=== PATIENT | male | born 1950 | race Caucasian/White ===

== ENCOUNTER 2024-04-12 12:26 | Emergency (ER) | payer OTHER, SELFPAY ==
[2024-04-12 12:37] VITALS: BP 140/81
[2024-04-12 12:48] VITALS: BMI 44.1
--- NOTE | 2024-04-12 16:16 | ED.MUSCINJ ---
HPI-Injury
General
Chief Complaint: Musculo-Skeletal Complaint
Time Seen by Provider: 04/12/24 15:29
History of Present Illness-Injury
Initial Injury comments:
Patient presents to the emergency department with left shoulder and anterior chest pain after fall 1 week ago. States that he was walking down the stairs when he lost his footing and fell forward. There is no head strike. Landed on his left arm.
Complains of left anterior chest pain when taking a deep breath. Mild left shoulder pain but is able to use the left arm without difficulty
Phy Exam
Physical Exam
Physical Exam:
GENERAL APPEARANCE: NAD, well developed/ well nourished
EYES lids/conjunctiva normal
EARS/NOSE/THROAT Mucous membranes moist, uvula midline without oral pharyngeal erythema, exudate or swelling
HEAD/NECK normocephalic atraumatic, neck is supple.
RESPIRATORY respiratory effort normal, speaks in full sentences, no accessory muscle use. Lungs clear to auscultation without rhonchi, wheezes, rales
CARDIAC Regular rate and rhythm, no edema.
ABDOMINAL Soft, ND/NT.
MUSCLES/EXTREMITIES right shoulder with full range of motion mild crepitus noted. There is mild tenderness to the right anterior chest wall. There is no crepitus or subcutaneous emphysema. No bruising to chest wall
SKIN Warm, pink and dry. No rashes
NEUROLOGICAL Speech is clear and appropriate. Normal level of consciousness. 5/5 strength in all extremities.
PSYCH Normal mood and affect. Judgement/competence is appropriate
Injury Course
Orders/Labs/Results
Orders:
Orders
04/12/24 12:28
EKG [Electrocardiogram (*1)] Urgent
Reason for Study: Chest Pain
EKG- Treatment ONCE
04/12/24 12:43
CR Chest - 2 Views Urgent
Reason For Exam: pain injury
CR Shoulder, Trauma - Right Urgent
Comment:
Reason For Exam: pain injury
*Critical Care Note
Total Time (30-74mins, 75-104mins- exclusive of procedures): Not Applicable
ED Attending Note
ED Attending Note
ED Attending Note:
Discussed possibility of rib fracture with patient which I suspect he may have though though this is not seen on the chest x-ray. I offered him a CT scan for definitive diagnosis though this does not management given he has no pneumothorax or any
complicated findings such as flail chest or respiratory distress. Patient opted to treat conservatively. I will provide him with an incentive spirometer and instructed him to closely follow-up with his primary doctor.
-
Portions of this chart may have been created with voice recognition software.� Occasional wrong word or��sound alike� substitutions may have occurred due to the inherent limitations of voice recognition software.
Discharge Plan
Departure
Patient Disposition: Home (Routine Discharge)
Date of Disposition: 04/12/24
Time of Disposition: 16:20
Patient with high blood pressure during this ER visit?: Yes
Discharge Problem:
Rib injury, Chest wall contusion
Referrals:
Yuan Vegas DO [Family Provider] -
Interventions
Interventions:
*Risk Screen - Suicide Last Done: 04/12/24 12:37
*General Assessment Last Done: 04/12/24 14:40
*Neglect/Abuse Screening Last Done: 04/12/24 12:37
*ED COVID-19 Vaccine History Last Done: 04/12/24 14:40
*Nursing Disposition Last Done: 04/12/24 16:29
ED-Musculoskeletal Assessment Last Done: 04/12/24 15:04
Discharge Date and Time
Discharge Date/Time: 04/12/24 16:29
Print Language: CHINESE
== END 2024-04-12 16:29 | disposition home or self-care (01) ==
LOC: EMR 12:26
PROVIDERS: EMERGENCY PHYSICIAN Emergency Medicine; FAMILY PHYSICIAN Internal Medicine
DX: S20.212A Contusion of left front wall of thorax, initial encounter (principal); M25.512 Pain in left shoulder; W10.9XXA Fall (on) (from) unspecified stairs and steps, initial encounter
CPT/HCPCS: 99284; 71046; 73030; 93005

== ENCOUNTER 2024-12-10 15:11 | Emergency (ER) | payer OTHER, SELFPAY ==
[2024-12-10 15:15] VITALS: BP 122/83
[2024-12-10 15:46] LABS: Hematocrit 43.1 % (39.0-52.0); Hemoglobin 14.6 g/dL (13.0-18.0); Mean Corp Hgb Conc. 33.9 g/dL (33.0-37.0); Mean Corpuscular Volume 94.5 fL (80.0-94.0); Nucleated Red Blood Cells % 0 % (-); Platelet Count 106 10^3/uL (130-400); Red Cell Dist. Width 12.4 % (11.5-14.5)
[2024-12-10 15:50] LABS: ALT (SGPT) 13 U/L (0-50); AST (SGOT) 19 U/L (17-59); Albumin 3.8 g/dl (3.5-5.0); Alkaline Phosphatase 81 U/L (38-126); Blood Urea Nitrogen 10 mg/dl (9-20); Calcium 8.8 mg/dl (8.4-10.2); Carbon Dioxide 27 mmol/L (22-30); Chloride 101 mmol/L (98-107); Glucose 167 mg/dl (70-99); Potassium 4.2 mmol/L (3.5-5.1); Sodium 134 mmol/L (135-145); Total Protein 7.0 g/dl (6.3-8.2); eGFR > 60.00
--- NOTE | 2024-12-10 18:15 | ED.GENMED ---
History of Present Illness
General
Chief Complaint: Weakness
Source: patient, spouse and family
Exam Limitations: none
Time Seen by Provider: 12/10/24 17:34
Nursing documentation reviewed up to this point in time: agreed with
History of Present Illness
History of Present Illness:
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
to bed woke up speech is better still feels kind of weak, has noticed some swelling of his testicles left greater than right which is not new, not known to be diabetic, did have some urinary burning initially and that cleared up and then he had dark
urine,
Past History
Past History
ED Past Medical History: None
ED Past Surgical History: None
Social History
Tobacco: Non-smoker
Alcohol: None
Drug: None
Personal:
Living: with family
Employment: Employed
Review of Systems
Review of Systems
All Other Systems: Not applicable
Constitutional: Reports fatigue; Denies fever
EENT: Reports no symptoms
Respiratory: Reports no symptoms
Cardiac: Reports no symptoms
ABD/GI: Denies abdominal pain
: Reports urgency, dark urine and other (Testicle swelling left greater than)
Neurological: Reports weakness and other (Speech abnormality in the setting of feeling warm few days ago none now)
Hematologic/Lymphatic: Reports no symptoms
Psychiatric: Reports no symptoms
Phy Exam
Physical Exam
Physical Exam:
Physical Exam
General: no apparent distress, not acutely ill
Neck: No jaundice
Heart: s1/s2 regular rate and rhythm, no murmur. equal radial pulses.
Lungs: no acute respiratory distress. clear bilaterally
Abdomen: Nontender testicles descended minimally tender left hemiscrotum compared to the right
Neuro: alert and oriented. no focal neurological deficits clear speech, no facial palsy normal [id number]
Skin: no rash
Psychiatric: well kept. interactive and cooperative
Extremities: no edema.
Course
Orders/Labs/Results
Orders:
Orders
12/10/24 15:14
EKG [Electrocardiogram (*1)] Urgent
Reason for Study: Fatigue / Weakness
12/10/24 15:15
EKG- Treatment ONCE
12/10/24 15:28
CT Head W/o Iv Contrast Urgent
Comment:
Reason For Exam: TIA/CVA
12/10/24 15:30
CBC/With Diff [Complete Blood Count/With Diff] Urgent
CMP [Comprehensive Metabolic Panel] Urgent
12/10/24 17:58
Scrotum US [US Scrotum] Urgent
Comment:
Reason For Exam: pain left>rigth teseticle
12/10/24 18:08
Urinalysis Reflex To Culture Urgent
Date Specimen was Collected: 12/10/24
Time Specimen was Collected: 18:01
Urine Microscopic Reflex Cult Urgent
Urine Culture Urgent
EMMANUELLE Source: U
Specimen Description:
Date Specimen was Collected: 12/10/24
Time Specimen was Collected: 18:01
12/10/24 18:38
Add On- LAB Urgent
Tests Added?: urine culture
CefTRIAXone [Rocephin] 1,000 mg IV NOW STA
Abnormal Lab Results
12/10/24 12/10/24
15:30 18:08
RBC 4.56 L 10^6/uL
(4.70-6.10)
MCV 94.5 H fL
(80.0-94.0)
MCH 32.0 H pg
(27.0-31.0)
Plt Count 106 L 10^3/uL
(130-400)
MPV 11.0 H fL
(7.4-10.4)
Abs Immat Gran (auto) 0.1 H 10^3/uL
(0-0.05)
Absolute Neuts (auto) 7.3 H 10^3/uL
(1.4-6.5)
Absolute Lymphs (auto) 0.5 L 10^3/uL
(1.2-3.4)
Immature Gran % 0.9 H %
(0-0.5)
Neutrophils % 85.4 H %
(42.2-75.2)
Lymphocytes % 6.3 L %
(20.5-51.1)
Sodium 134 L mmol/L
(135-145)
Glucose 167 H mg/dl
(70-99)
Urine Ketones 2+ A
(Negative)
Ur Occult Blood Reflex 4+ A
(Negative)
Urine Nitrite (Reflex) Positive A
(Negative)
Leukocyte Esterase Rfl 3+ A
(Negative)
Urine WBC (Reflex) 50-60 A /HPF
(0-5)
Urine Bacteria (Reflex) Many A
(Negative)
Urine Albumin (Reflex) 2+ A
(Neg - Trace)
12/10/24 15:30
12/10/24 15:30
Vital Signs
Initial and Last Documented VS:
Initial Vital Signs
Temp Pulse Resp BP Pulse Ox
99.2 F 91 15 122/83 99
12/10/24 15:15 12/10/24 15:15 12/10/24 15:15 12/10/24 15:15 12/10/24 15:15
Last Documented Vital Signs
Temp Pulse Resp BP Pulse Ox
99.2 F 91 15 122/83 99
12/10/24 15:15 12/10/24 15:15 12/10/24 15:15 12/10/24 15:15 12/10/24 18:16
*Radiology
Radiology exam reviewed: radiology read reviewed
*Pulse Oximetry
SaO2: 99
Oxygen Mode of Delivery: Room air
Patient hypoxic: no
*EKG
Interpreted by ED Provider?: Yes
Interpretation: normal
Comparison EKG: no comparison EKG present
Heart Rate: 78
Rate: normal
Rhythm: sinus
Ischemia: no ischemia
*Octave Board Racker Interpretation
Rate: normal
Interpretation: normal
Heart Rate: 78
Rhythm: sinus
*Critical Care Note
Total Time (30-74mins, 75-104mins- exclusive of procedures): Not Applicable
Update Note
Update Note:
Update suspect heatstroke heat related illness possibly concomitant UTI nonfocal neurologic exam normal CT labs are noted nonfasting glucose, will check urinalysis urine culture scrotal ultrasound start on saline hydration
UA noted will add urine culture start on antibiotics ultrasound pending
ED Attending Note
-
Portions of this chart may have been created with voice recognition software.� Occasional wrong word or��sound alike� substitutions may have occurred due to the inherent limitations of voice recognition software.
Discharge Plan
Departure
Patient Disposition: Home (Routine Discharge)
Date of Disposition: 12/10/24
Time of Disposition: 19:18
Patient with high blood pressure during this ER visit?: No
Condition: Good
Discharge Problem:
Acute UTI, Heatstroke
Instructions: Urinary tract infections in adults, Urinary tract infection - Discharge instructions
Prescriptions:
New
amoxicillin-pot clavulanate 875-125 mg tablet
1 tab PO Q12H Qty: 20 0RF
Referrals:
Yuan Vegas DO [Family Provider, Internal Medicine] - Follow up in 2-3 days
Activity Restrictions/Additional Instructions:
Drink plenty of fluids
Avoid the heat
Antibiotics as prescribed
Return to the ER if worsening symptoms
Interventions
Interventions:
*Risk Screen - Suicide Last Done: 12/10/24 15:15
*General Assessment Last Done: 12/10/24 15:15
*Neglect/Abuse Screening Last Done: 12/10/24 15:15
ED- Cardiac Assessment Last Done: 12/10/24 18:11
ED- Neurological Assessment Last Done: 12/10/24 18:11
ED- Pulmonary Assessment Last Done: 12/10/24 18:11
Discharge Date and Time
Print Language: DJIBOUTIAN
[2024-12-10 18:23] LABS: Urine Character Slightly Cloudy (Clear)
[2024-12-10 18:35] LABS: Urine Red Blood Cell 0-2 /HPF (0-2)
[2024-12-10 18:36] LABS: Urine White Cell 50-60 /HPF (0-5)
[2024-12-10] MEDS: ROCEPHIN 1000 MG IV (18:52)
== END 2024-12-10 21:57 | disposition home or self-care (01) ==
LOC: EMR 15:11
PROVIDERS: Emergency Medicine; EMERGENCY PHYSICIAN Emergency Medicine; FAMILY PHYSICIAN Internal Medicine
DX: N39.0 Urinary tract infection, site not specified (principal); T67.01XA Heatstroke and sunstroke, initial encounter; X58.XXXA Exposure to other specified factors, initial encounter
CPT/HCPCS: 99284; 96374; 96375; 70450; 76870; 80053; 81003; 81015; 85025; 87077; 87086; 87186; 93005; 93976

== ENCOUNTER 2024-12-11 23:00 | Inpatient (IN) | payer OTHER, SELFPAY ==
[2024-12-11 17:32] VITALS: BP 134/77
[2024-12-11 17:59] LABS: Urine Character Slightly Cloudy (Clear)
[2024-12-11 18:01] LABS: Hematocrit 40.9 % (39.0-52.0); Hemoglobin 14.1 g/dL (13.0-18.0); Mean Corp Hgb Conc. 34.5 g/dL (33.0-37.0); Mean Corpuscular Volume 93.0 fL (80.0-94.0); Nucleated Red Blood Cells % 0 % (-); Platelet Count 116 10^3/uL (130-400); Red Cell Dist. Width 12.4 % (11.5-14.5)
[2024-12-11 18:28] LABS: ALT (SGPT) 13 U/L (0-50); AST (SGOT) 22 U/L (17-59); Albumin 3.5 g/dl (3.5-5.0); Alkaline Phosphatase 67 U/L (38-126); Blood Urea Nitrogen 13 mg/dl (9-20); Calcium 8.5 mg/dl (8.4-10.2); Carbon Dioxide 24 mmol/L (22-30); Chloride 101 mmol/L (98-107); Glucose 207 mg/dl (70-99); Potassium 4.0 mmol/L (3.5-5.1); Sodium 132 mmol/L (135-145); Total Protein 6.5 g/dl (6.3-8.2); eGFR > 60.00
[2024-12-11 18:34] LABS: Urine Red Blood Cell 30-40 /HPF (0-2); Urine White Cell >100 /HPF (0-5)
[2024-12-11 20:32] VITALS: BP 142/80
[2024-12-11 21:12] VITALS: BMI 42.6
[2024-12-11 21:13] VITALS: BP 158/90
[2024-12-11] MEDS: NSS 1000 IV (21:16)
[2024-12-11] MEDS: ROCEPHIN 1000 MG IV (21:16)
--- NOTE | 2024-12-11 21:23 | HPS.HSE ---
Family Physician
-
Family Physician:
Chief Complaint
-
Dysuria, dribbling, frequency, suprapubic tenderness
History of Present Illness
74-year-old male states on Saturday he became nauseous and threw up at work he then came home started having dysuria, dribbling, frequency with suprapubic tenderness along with weakness and hallucinations. He did not take his temperature. He came
to the ER yesterday 12/10/2024 was diagnosed with UTI and given Augmentin of which she has taken 2 tablets. He tells me he has had scrotal edema with inverted penis for approximately 2 years he followed outpatient with urology Dr. Shaw in
[facility] who did not address anything. He has a left testicular hard and mass approximately 4 inches long by 2 inches wide. 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 He has bilateral leg edema
with PVD pigment brown changes history of saphenous vein ablation left leg without results. He has history of sleep apnea diagnosed several years ago states he did not want to use CPAP so he uses warm water and gargles and feels that that fixed his
sleep apnea. He has history of class III obesity I discussed all of the above stating he needs weight loss, compressive dressings to lower legs, reevaluation by pulmonology for sleep apnea and evaluation by cardiology for dependent leg edema. He
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
Medical History
Past Medical History
Past Medical History: Reports Other
Additional Past Medical History:
history of class III obesity,
hepatomegaly with cirrhosis and/or fatty infiltration per ultrasound 05/08/2016,
sleep apnea-noncompliant
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
Past Surgical History: Reports Other
Additional Past Surgical History:
Left leg saphenous vein ablation x 2
Social History
Tobacco: Non-smoker
Alcohol: None
Personal:
Living: With Family
Employment: Retired
Family History
Family History: Not pertinent
Allergies / Home Medications
Allergies reflects when Allergies were last updated in [employer].
Home Medications with original date entered in [employer]
Allergy/Medication List:
Allergies
Allergy/AdvReac Type Severity Reaction Status Date / Time
cinnamon Allergy Unknown Verified 12/11/24 17:38
Home Medications
amoxicillin 875 mg-potassium clavulanate 125 mg tablet 1 tab PO Q12H #20 tabs 12/10/24
Review of Systems
-
History Source: Patient and Family ( at bedside)
A 12 point ROS was completed and negative except as noted: Yes
Constitutional: Denies Fever or Chills
EENT: Denies Sore Throat or Runny Nose
Respiratory: Reports Trouble Breathing (With activity); Denies Cough
Cardiac: Denies Chest Pain, Diaphoresis, Palpitations or Syncope
Abdomen/GI: Reports Abdominal Pain (Suprapubic); Denies Nausea, Vomiting, Diarrhea, Constipated or Bloody Stools
: Reports Dysuria, Frequency, Incontinence, Urgency and Other (Chronic swelling to scrotum, left side with hard mass approximately 4 inch long by 2 inch wide, inverted circumcised penis no evidence of phimosis); Denies Flank Pain
Musculoskeletal: Reports Edema (Chronic +1 peripheral edema knees to feet with brown purpleish pigment changes history of PVD); Denies Joint Pain
Skin: Denies Itching or Rash
Neurological: Reports Weakness; Denies Dizzy or Headache
Endocrine: Reports No Symptoms
Hematologic/Lymphatic: Reports No Symptoms
Psych: Reports Calm
Physical Exam
Vital Signs
Vital Signs
Temp Pulse Resp BP Pulse Ox
99.2 F 80 20 142/80 98
12/11/24 17:32 12/11/24 20:32 12/11/24 20:32 12/11/24 20:32 12/11/24 20:32
Physical Exam
General: Pain; No Fever or Chills
HEENT: NormoCephalic, Anicteric, Moist mucous membranes, PERRLA, [place] Conjunctivae and No Ptosis
Respiratory: Clear; No Wheezes, Rales or Rhonchi
Cardiac: S1/S2, Regular Rhythm and Peripheral Edema (Chronic bilateral lower legs); No Murmur, Rub or Gallop
GI: Soft, Normal Bowel Sounds and Other (Protuberant abdomen)
Genito-urinary: No costovertebral tender and Other (Chronic swelling to scrotum, left side with hard mass approximately 4 inch long by 2 inch wide, inverted circumcised penis no evidence of phimosis)
Musculoskeletal: No Clubbing, No Cyanosis, Edema, Left Lower Extremity (Chronic +1 peripheral edema knees to feet with brown purpleish pigment changes history of PVD) and Edema, Right Lower Extremity (Chronic +1 peripheral edema knees to feet with
brown purpleish pigment changes history of PVD); No Edema, Left Upper Extremity or Edema, Right Upper Extremity
Skin: Warm and Dry; No Rash
Neuro: AO x 3, Nonfocal/grossly intact, Cranial Nerves Intact, No Sensory Deficits and Other (Limited range of motion due to body habitus); No Slurred Speech, Facial Droop, Tremors or Sedated
Psych: Calm
Laboratory Results
-
12/11/24 17:47
12/11/24 17:47
Laboratory Results
Total Bilirubin 0.9 mg/dl (0.2-1.3) 12/11/24 17:47
AST 22 U/L (17-59) 12/11/24 17:47
ALT 13 U/L (0-50) 12/11/24 17:47
Alkaline Phosphatase 67 U/L (38-126) 12/11/24 17:47
Impression/Plan
-
Impression/plan:
Admit to MedSurg
#Symptomatic UTI
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
Dysuria, dribbling, frequency
Inability to tolerate p.o.
-Patient followed with urology Dr. Webster [facility] who he does not like
- IV Rocephin
- IV NSS 80 cc/h
- Follow CBC, BMP
- Consult urology-discussed with Dr. Wilkins once CT abdomen pelvis noncontrast
Scrotal ultrasound done yesterday 12/10/2024:
On the left, findings suspicious for mild epididymoorchitis. In addition, Adjacent to the epididymis, slightly thickened echogenic margins are noted.
The appearance suggests possibility of fibrous pseudotumor of the tunica vaginalis.
On the right, mild thickening of the epididymis without hyperemia to suggest acute epididymitis. Small to moderate right hydrocele. Mild right varicocele, with a short segment of thrombophlebitis.
#Sleep apnea�noncompliant
Monitor nocturnal pulse ox
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
#History of saphenous vein ablation left leg Dr. Ty Kirk
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
- Use Velcro compressive dressings for leg edema
#Hyperglycemia
Blood sugar 207, check HgbA1c
Accu-Cheks with SSI low
#Hepatomegaly with cirrhosis and/or fatty infiltration per ultrasound 05/08/2016
#Class III obesity�BMI 42.7
Weight loss recommended
DVT prophylaxis
Subcu Lovenox
Full code
--- NOTE | 2024-12-11 21:48 | ED.GENMED ---
History of Present Illness
General
Chief Complaint: Weakness
Time Seen by Provider: 12/11/24 20:58
Nursing documentation reviewed up to this point in time: agreed with
History of Present Illness
History of Present Illness:
74-year-old male brought to the ER by family for further treatment of urinary tract infection and confusion that were evaluated yesterday in the emergency department. Patient has no recollection of the events from yesterday, although family reports
that he had been ambulating independently without any reported trauma. Family present at bedside report that he has been confused. He has not had any significant p.o. intake in the last several days. No vomiting. Patient did not receive any
antibiotics yet for his urinary tract infection. Patient had been offered admission yesterday but adamantly declined causing his family to take him home. Patient is now willing for admission for further evaluation and care. He has no prior
history of kidney stones. He denies any flank pain. No syncope or trauma.
Past History
Past History
ED Past Medical History: None
ED Past Surgical History: None
Social History
Tobacco: Non-smoker
Alcohol: None
Drug: None
Personal:
Living: with family
Employment: Employed
Phy Exam
Physical Exam
Physical Exam:
Vital signs reviewed, patient is awake, alert, appears in no acute distress, mucous membranes tacky, conjunctiva pink, heart regular rate and rhythm without murmurs or ectopy, lungs are clear to auscultation without wheezes rales or rhonchi, abdomen
is soft and nontender, no guarding or rebound, extremities without edema, 2+ DP pulses present symmetric bilateral feet, left third toe with minor abrasion noted at the nailbed and scant dried blood present, no limitation active range of motion
bilateral feet GCS is 15
Course
Orders/Labs/Results
Orders:
Orders
12/11/24 17:47
Complete Blood Count/With Diff Urgent
Comprehensive Metabolic Panel Urgent
12/11/24 17:51
Urinalysis Reflex To Culture Urgent
Date Specimen was Collected: 12/11/24
Time Specimen was Collected: 17:39
Urine Microscopic Reflex Cult Urgent
Urine Culture Urgent
EMMANUELLE Source: U
Specimen Description:
Date Specimen was Collected: 12/11/24
Time Specimen was Collected: 17:39
12/11/24 20:59
CefTRIAXone [Rocephin] 1,000 mg IV NOW STA
12/11/24 21:05
0.9% Sodium Chloride 1000 ml [Nss] 1,000 ml IV BOLUS
Abnormal Lab Results
12/11/24 12/11/24
17:47 17:51
RBC 4.40 L 10^6/uL
(4.70-6.10)
MCH 32.0 H pg
(27.0-31.0)
Plt Count 116 L 10^3/uL
(130-400)
MPV 10.9 H fL
(7.4-10.4)
Absolute Lymphs (auto) 0.6 L 10^3/uL
(1.2-3.4)
Absolute Monos (auto) 0.7 H 10^3/uL
(0.1-0.6)
Neutrophils % 79.8 H %
(42.2-75.2)
Lymphocytes % 8.7 L %
(20.5-51.1)
Sodium 132 L mmol/L
(135-145)
Glucose 207 H mg/dl
(70-99)
Ur Occult Blood Reflex 4+ A
(Negative)
Leukocyte Esterase Rfl 3+ A
(Negative)
Urine RBC 30-40 A /HPF
(0-2)
Urine WBC (Reflex) >100 A /HPF
(0-5)
Urine Bacteria (Reflex) Many A
(Negative)
Urine Glucose 2+ A
(Negative)
Urine Albumin (Reflex) 2+ A
(Neg - Trace)
12/11/24 17:47
12/11/24 17:47
Mild worsening in hyponatremia compared to labs from yesterday. Kidney function preserved. CBC reassuring. Urinalysis positive for urinary tract infection
Vital Signs
Initial and Last Documented VS:
Initial Vital Signs
Temp Pulse Resp BP Pulse Ox
99.2 F 76 18 134/77 96
12/11/24 17:32 12/11/24 17:32 12/11/24 17:32 12/11/24 17:32 12/11/24 17:32
Last Documented Vital Signs
Temp Pulse Resp BP Pulse Ox
99.2 F 80 20 142/80 98
12/11/24 17:32 12/11/24 20:32 12/11/24 20:32 12/11/24 20:32 12/11/24 20:32
MDM/Problems Addressed
Differential Diagnosis Includes:
Differential diagnosis to consider but not limited to UTI, pyelonephritis, sepsis, dehydration along with other etiologies considered
*Pulse Oximetry
SaO2: 98
Oxygen Mode of Delivery: Room air
Patient hypoxic: no
*Critical Care Note
Total Time (30-74mins, 75-104mins- exclusive of procedures): Not Applicable
Data Reviewed
Review of Other/Old Records Reveals: Records (I reviewed ED visit from yesterday along with all test results including CT of the head which was negative)
Update Note
Update Note:
I discussed with patient and feel members present bedside benefit of admission for further treatment of urinary tract infection, in particular as he has been unable to tolerate p.o. and has been generally weak at home. They agree with plan. I
reviewed patient presentation with the hospitalist who accepts patient for admission for further care.
ED Attending Note
-
Portions of this chart may have been created with voice recognition software.� Occasional wrong word or��sound alike� substitutions may have occurred due to the inherent limitations of voice recognition software.
Discharge Plan
Departure
Patient Disposition: Admit
Date of Disposition: 12/11/24
Time of Disposition: 21:13
Presentation/result/management discussed w/ accepting MD/DO: Hospitalist
Discharge Problem:
Urinary tract infection, Acute delirium, inability to tolerate po
Prescriptions:
No Action
amoxicillin-pot clavulanate 875-125 mg tablet
1 tab PO Q12H Qty: 20 0RF
Interventions
Interventions:
*Risk Screen - Suicide Last Done: 12/11/24 17:32
*General Assessment Last Done: 12/11/24 17:32
*Neglect/Abuse Screening Last Done: 12/11/24 17:32
*ED COVID-19 Vaccine History Last Done: 12/11/24 17:32
Discharge Date and Time
Print Language: UZBEK
--- NOTE | 2024-12-11 21:53 | W.PN.UPDATE ---
Update Note
Progress Note Update
Patient seen in conjunction with YAEL. I agree with the findings on history and physical. I concur with assessment and plan listed otherwise.
Briefly, this is a 74-year-old male with past medical history significant for nephrolithiasis, history of gastric ulcer, fatty liver, BPH who presents to the emergency department with altered mental status and weakness as well as some urinary
symptoms. He was seen in the emergency department 1 day ago for episode of feeling dizzy and confused with some slurring of words that occurred during the hot weather episode 2 days prior. He went to bed and woke up and noticed that his speech had
returned to normal but he still felt weak. He has some testicular/scrotal swelling left greater than right as well as some urinary burning which also cleared up. When he was seen yesterday was found to have a urinary tract infection and started on
oral antibiotics. Patient returns to the ED stating that he is unable to tolerate p.o. and has continued confusion.
Today had a temp of 99.2, blood pressure was 140/80 with a pulse rate of 80 and was satting 98% on room air. CBC is unremarkable. His sodium of 132 electrolytes BUN/creatinine were otherwise normal. Glucose was 207. UA from yesterday was
positive for nitrite leukocyte esterase WBCs and many bacteria. He had an ultrasound of the scrotum suspicious for mild epididymoorchitis. In addition, Adjacent to the epididymis, slightly thickened echogenic margins are noted. The appearance
suggests possibility of fibrous pseudotumor of the tunica vaginalis.
Assessment and plan
UTI - Unclear predisposing factor but likely anatomical with scrotal edema/hydrocele and buried meatus. No flank pain, no fevers or chills. Has hematuria.
- admit to telemetry observation
- ucx sent
- IV ceftriaxone
- check CT a/p to rule out obstructing stone
Scrotal edema - possible epididymorchitis with small to moderate right hydrocele. Mild right varicocele, with a short segment of thrombophlebitis. H/O fibrotic changes on prior abdominal u/s but no known dgx of cirrhosis.
- IV abx as above
- suggest outpatient urology follow up, weight loss and fluid management, check bnp, if elevated will get echo.
- eval ascites on the CT above
DAVID
- restart CPAP
Metabolic syndrome
- check lipid panel and a1c
DVT PPX - lovenox sq
Code status - Full Code
[2024-12-11 22:00] VITALS: BP 147/93
[2024-12-11 23:20] VITALS: BP 150/92
[2024-12-12 00:15] LABS: Glucose - Point of Care 145 mg/dl (70-99)
[2024-12-12 00:20] VITALS: BP 138/78
[2024-12-12] MEDS: NSS 1000 IV (01:00)
[2024-12-12 05:29] VITALS: BMI 41.8
[2024-12-12 07:00] VITALS: BP 126/76
[2024-12-12 07:43] LABS: Glucose - Point of Care 183 mg/dl (70-99)
[2024-12-12] MEDS: NOVOLOG FLEXPEN-LOW RESISTANCE 1 UNITS SC ×3 (08:52→16:50)
--- NOTE | 2024-12-12 08:54 | W.PN.HOSP.TC ---
Today's Communication/Plan
-
see bold
Assessment / Plan
Assessment / Plan
#Symptomatic UTI with mild mild epididymoorchitis on US
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
Patient presents with dysuria, dribbling, frequency, inability to tolerate p.o.
Patient followed with urology Dr. Webster [facility] who he does not like
Continue IV Rocephin, follow-up on urine cultures
Appreciate urology input, recommends elevation, heat to the scrotum, NSAIDs as needed for pain
Scrotal ultrasound done yesterday 12/10/2024:
On the left, findings suspicious for mild epididymoorchitis. In addition, Adjacent to the epididymis, slightly thickened echogenic margins are noted.
The appearance suggests possibility of fibrous pseudotumor of the tunica vaginalis.
On the right, mild thickening of the epididymis without hyperemia to suggest acute epididymitis. Small to moderate right hydrocele. Mild right varicocele, with a short segment of thrombophlebitis.
#Sleep apnea�noncompliant
Monitor nocturnal pulse ox
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
#History of saphenous vein ablation left leg Dr. Ty Kirk
-Recommended patient see solar system designer outpatient for echo rule out heart failure
-Use Velcro compressive dressings for leg edema
# New onset type 2 diabetes
Hemoglobin A1c 6.9
Carb controlled diet, diabetes education
#Hepatomegaly with cirrhosis and/or fatty infiltration per ultrasound 05/08/2016
#Class III obesity�BMI 42.7
Weight loss recommended
DVT prophylaxis�subcu Lovenox
Full code
Total time spent to see the patient on the floor, examine the patient, review data and lab results, discuss treatment plan with patient, nursing staff around 50 minutes.
Physical Exam
General: Morbidly obese, no acute distress
HEENT: Normocephalic, Atraumatic, EOMI, MMM
Respiratory: Clear to Auscultation bilaterally
Cardiac: Normal S1/S2, Regular Rate and Rhythm
GI: Soft, Nontender, Nondistended, Normal Bowel Sounds
: Scrotal swelling noted
Extremities: No Clubbing, Cyanosis
Bilateral lower extremity edema noted with skin changes reflective of venous stasis dermatitis
Neuro: Nonfocal/Grossly Intact
Psych: Calm, Cooperative
Anticipated Discharge: 24 - 48 hours
Subjective/Interval History
-
Date of Service: December 12, 2024
Patient complains of continued scrotal pain and edema. Denies dysuria. No chest pain, no shortness of breath. No fever, no vomiting.
Objective Data
-
Labs:
Laboratory Results
12/12/24
08:00
WBC Pending
Hgb Pending
Hct Pending
Plt Count Pending
Sodium Pending
Potassium Pending
Chloride Pending
Carbon Dioxide Pending
BUN Pending
Creatinine Pending
Glucose Pending
Calcium Pending
Total Bilirubin Pending
AST Pending
ALT Pending
Alkaline Phosphatase Pending
Vital Signs:
Vital Signs
Temp Pulse Resp BP Pulse Ox
98.1 F 73 16 126/76 95
12/12/24 07:00 12/12/24 07:00 12/12/24 07:00 12/12/24 07:00 12/12/24 07:00
I&O
12/11/24 12/12/24 12/13/24
06:59 06:59 06:59
Intake Total 480 / 480
Balance 480 / 480
[2024-12-12 09:15] LABS: Hematocrit 40.3 % (39.0-52.0); Hemoglobin 13.7 g/dL (13.0-18.0); Mean Corp Hgb Conc. 34.0 g/dL (33.0-37.0); Mean Corpuscular Volume 93.7 fL (80.0-94.0); Nucleated Red Blood Cells % 0 % (-); Platelet Count 127 10^3/uL (130-400); Red Cell Dist. Width 12.4 % (11.5-14.5)
[2024-12-12 09:39] LABS: ALT (SGPT) 16 U/L (0-50); AST (SGOT) 24 U/L (17-59); Albumin 3.3 g/dl (3.5-5.0); Alkaline Phosphatase 77 U/L (38-126); Blood Urea Nitrogen 12 mg/dl (9-20); Calcium 8.3 mg/dl (8.4-10.2); Carbon Dioxide 26 mmol/L (22-30); Chloride 103 mmol/L (98-107); Estimated Creatinine Clearance > 125 ml/min; Glucose 157 mg/dl (70-99); HDL Cholesterol 27 mg/dl; LDL Cholesterol, Calculated 116 mg/dl; Potassium 3.9 mmol/L (3.5-5.1); Sodium 134 mmol/L (135-145); Total Protein 6.2 g/dl (6.3-8.2); Very Low Density Lipoprotein 27 mg/dl (0-30); eGFR > 60.00
[2024-12-12 10:55] LABS: Glycohemoglobin (HgbA1c) 6.9 % (4.0-5.6)
[2024-12-12 10:57] VITALS: BP 127/71
--- NOTE | 2024-12-12 11:09 | W.PN.URO.CBU ---
Today's Communication / Plan
-
heat elevate scrotum
Assessment / Plan
-
uti possible acute on chronic left epididymal pain non toxic urine bladne suggest elevation heat to scrotm and advil abs. follow up wit gu as outpatient no iobvuious reversible etiologed ofuti
Diagnosis
-
Date of Service: December 12, 2024
-
Patient Diagnosis:2 year plus h/o left scrotall pain an swelling getting worse but recent uti last week treated as outpatient but could nt tolerate po abs and returned to [facility] non toxic but uncomg]fortable ct scab c/ with
cystitis bt bladder empties mild prostatomegaly and if possible mild left epidiymoorchitis Ultrasound benign tunical l esion and epididymitis
Post Op Day:
Subjective
-
left testicle pain
Objective
-
Vital Signs
Temp Pulse Resp BP Pulse Ox
98.1 F 66 16 127/71 95
12/12/24 07:00 12/12/24 10:57 12/12/24 07:00 12/12/24 10:57 12/12/24 07:00
Intake and Output
12/11/24 12/12/24 12/13/24
06:59 06:59 06:59
Intake Total 480 / 480
Balance 480 / 480
Intake:
Oral fluids 480 / 480
Other:
Number of approximated MODERATE 2
amounts of urine
Laboratory Results
12/12/24 08:00
12/12/24 08:00
Review of Systems
-
: Dysuria, Frequency and Other (left testicle pain)
Physical Exam
-
General - well developed, well nourished, no acute distress
Chest - clear bilaterally
Abdomen - soft, non-tender, positive bowel sounds, no CVAT, no incisional pain or distention
Genitalia - pleft testicle ;pain but no evidence acute processed
Rectal - normal
Skin - warm & dry with no rash
Neuro - AOx3, no motor deficits
Extremities - no clubbing, no cyanosis, no edema
Incision - clean, dry
Dressing - clean, dry, intact
Counseling
-
nheat elevate scroytum
Care Review
Data Reviewed
Discussed with: Hospitalist and Nursing
CT Scan: Image Pers Reviewed
Ultrasound: Image Pers Reviewed
[2024-12-12 11:48] LABS: Glucose - Point of Care 192 mg/dl (70-99)
[2024-12-12] MEDS: SENOKOT-S PO (12:16)
[2024-12-12 15:39] VITALS: BP 146/75
[2024-12-12 16:50] LABS: Glucose - Point of Care 152 mg/dl (70-99)
[2024-12-12] MEDS: LOVENOX 40 MG SC (17:32)
[2024-12-12] MEDS: SENOKOT-S 2 TABLET PO (21:05)
[2024-12-12 21:29] LABS: Hepatitis C Antibody Negative (Negative)
[2024-12-12 21:33] LABS: Glucose - Point of Care 205 mg/dl (70-99)
[2024-12-12] MEDS: STERILE WATER FOR INJECTION 10 ML IV (22:00)
[2024-12-12] MEDS: ROCEPHIN 1000 MG IV (22:15)
[2024-12-12 23:00] VITALS: BP 152/82
[2024-12-13 06:00] VITALS: BMI 42.0
[2024-12-13 07:37] VITALS: BP 155/85
[2024-12-13 08:04] LABS: Glucose - Point of Care 166 mg/dl (70-99)
[2024-12-13] MEDS: SENOKOT-S 2 TABLET PO (08:05)
[2024-12-13 08:23] LABS: PSA, Total - Screen 13.40 ng/ml (0.0-4.0)
--- NOTE | 2024-12-13 08:45 | W.PN.HOSP.TC ---
Addendum entered and electronically signed by Pablo Aquino MD 12/13/24 14:13:
Patient has an elevated PSA. He has an MRI of his pelvis appointment for Saturday 12/16.
He has been instructed to keep his MRI appointment.
Original Note:
Today's Communication/Plan
-
Discharge today
Assessment / Plan
Assessment / Plan
#Symptomatic UTI with mild mild epididymoorchitis on US
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
Patient presents with dysuria, dribbling, frequency, inability to tolerate p.o.
Patient followed with urology Dr. Webster [facility] who he does not like
Urine cultures growing E. coli, sensitive to everything except for ampicillin
Change IV Rocephin to Augmentin twice a day as patient was discharged with this from the ER on 12/11
Appreciate urology input, recommends elevation, heat to the scrotum, NSAIDs as needed for pain
Medically stable for discharge, follow-up with his PCP in 1 week, and his urology as directed
Scrotal ultrasound done yesterday 12/10/2024:
On the left, findings suspicious for mild epididymoorchitis. In addition, Adjacent to the epididymis, slightly thickened echogenic margins are noted.
The appearance suggests possibility of fibrous pseudotumor of the tunica vaginalis.
On the right, mild thickening of the epididymis without hyperemia to suggest acute epididymitis. Small to moderate right hydrocele. Mild right varicocele, with a short segment of thrombophlebitis.
#Weakness
Patient ambulated in the hallways and up the stairs with PT today
Reports feeling steady and ready to go home
#Sleep apnea�noncompliant
Monitor nocturnal pulse ox
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
#History of saphenous vein ablation left leg Dr. Ty Kirk
-Recommended patient see associate sales representative outpatient for echo rule out heart failure
-Use Velcro compressive dressings for leg edema
# New onset type 2 diabetes
Hemoglobin A1c 6.9 -patient informed of his new diagnosis
Carb controlled diet, diabetes education
#Hepatomegaly with cirrhosis and/or fatty infiltration per ultrasound 05/08/2016
#Class III obesity�BMI 42.7
Weight loss recommended
DVT prophylaxis�subcu Lovenox
Full code
Updated on phone 12/13 that patient is medically stable for discharge
asking if we can keep patient until 12/15 because no one can pick him up today
Informed , that patient is medically stable for discharge, and we cannot keep him in the hospital for 2 more days for transportation issues
Case management informed and consulted to help arrange for transportation home
Total time spent to see the patient on the floor, examine the patient, review data and lab results, discuss treatment plan with patient, nursing staff around 50 minutes.
Physical Exam
General: Morbidly obese, no acute distress
HEENT: Normocephalic, Atraumatic, EOMI, MMM
Respiratory: Clear to Auscultation bilaterally
Cardiac: Normal S1/S2, Regular Rate and Rhythm
GI: Soft, Nontender, Nondistended, Normal Bowel Sounds
: Scrotal swelling noted
Extremities: No Clubbing, Cyanosis
Bilateral lower extremity edema noted with skin changes reflective of venous stasis dermatitis
Neuro: Nonfocal/Grossly Intact
Psych: Calm, Cooperative
Anticipated Discharge: Today
Subjective/Interval History
-
Date of Service: December 13, 2024
Patient complains of continued pain and swelling of his left testicle. No bowel movement. Denies chest pain, denies shortness of breath. No fever, no vomiting.
Objective Data
-
Vital Signs:
Vital Signs
Temp Pulse Resp BP Pulse Ox
98.1 F 64 18 155/85 95
12/13/24 07:37 12/13/24 07:37 12/13/24 07:37 12/13/24 07:37 12/13/24 07:37
I&O
12/12/24 12/13/24 12/14/24
06:59 06:59 06:59
Intake Total 480 / 480 1200 / 1200
Balance 480 / 480 1200 / 1200
[2024-12-13] MEDS: NOVOLOG FLEXPEN-LOW RESISTANCE 1 UNITS SC (08:50)
--- NOTE | 2024-12-13 09:31 | W.PN.URO.CBU ---
Today's Communication / Plan
-
HEAT ELEVATE SCROTUM
Assessment / Plan
-
uti possible acute on chronic left epididymal pain non toxic urine bladne suggest elevation heat to scrotm and advil abs. follow up wit gu as outpatient no iobvuious reversible etiologed ofuti PSA 13 H/O 58 GM PROSTE 2018 HAS
UROLOGIDT AND HAS [facility] SCHEDULED FOR SAT THIS WEEK SUGGEST DISCHS-ARGE ON PO ABS HEAT ELEVATIO PT W=AWARE OF PDSA AND NEED FOR FOLOW UP DR REYNA
Diagnosis
-
Date of Service: December 13, 2024
-
Patient Diagnosis:
Post Op Day:
Patient Diagnosis:2 year plus h/o left scrotall pain an swelling getting worse but recent uti last week treated as outpatient but could nt tolerate po abs and returned to [facility] non toxic but uncomg]fortable ct scab c/ with
cystitis bt bladder empties mild prostatomegaly and if possible mild left epidiymoorchitis Ultrasound benign tunical l esion and epididymitis ELEVTAED PSA BPH
Post Op Day:
Subjective
-
LEFT TESTICLE PAIN NO FEVR CHILLS
Objective
-
Vital Signs
Temp Pulse Resp BP Pulse Ox
98.1 F 64 18 155/85 95
12/13/24 07:37 12/13/24 07:37 12/13/24 07:37 12/13/24 07:37 12/13/24 07:37
Intake and Output
12/12/24 12/13/24 12/14/24
06:59 06:59 06:59
Intake Total 480 / 480 1200 / 1200
Balance 480 / 480 1200 / 1200
Intake:
Oral fluids 480 / 480 1200 / 1200
Other:
Number of approximated MODERATE 2 3
amounts of urine
Laboratory Results
12/12/24 08:00
12/12/24 08:00
Review of Systems
-
: Other (LEFT TESTICLE PAIN)
Physical Exam
-
General - well developed, well nourished, no acute distress
Chest - clear bilaterally
Abdomen - soft, non-tender, positive bowel sounds, no CVAT, no incisional pain or distention
Genitalia -BENOIGN MASS MILD TENDERNESS NO ABSCESS LEFT EPIDIDYMIS
Rectal - normal
Skin - warm & dry with no rash
Neuro - AOx3, no motor deficits
Extremities - no clubbing, no cyanosis, no edema
Incision - clean, dry
Dressing - clean, dry, intact
Care Review
Data Reviewed
Discussed with: Hospitalist
CT Scan: Image Pers Reviewed
[2024-12-13] MEDS: MIRALAX 17 GRAMS PO (11:37)
[2024-12-13 11:40] VITALS: BP 154/86; PULSE 66
[2024-12-13 11:46] LABS: Glucose - Point of Care 206 mg/dl (70-99)
[2024-12-13] MEDS: NOVOLOG FLEXPEN-LOW RESISTANCE 2 UNITS SC (12:54)
[2024-12-13] MEDS: AUGMENTIN 875 MG/125 MG 1 TABLET PO (13:21)
[2024-12-13] MEDS: MOTRIN 800 MG PO (13:21)
--- NOTE | 2024-12-13 14:11 | W.DCSUMMARY ---
Discharge Summary
Discharge Data
Date of Admission: 12/11/24
Date of Discharge: 12/13/24
-
Pending Results: No
Hospital Course
Discharge diagnosis:
Symptomatic urinary tract infection with mild mild epididymoorchitis on ultrasound
Acute toxic metabolic encephalopathy
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
Weakness
Constipation
New onset type 2 diabetes with a hemoglobin A1c of 6.9
Obstructive sleep apnea
Bilateral lower extremity edema
Venous stasis dermatitis
New onset type 2 diabetes
Obesity due to excess calories
Hepatomegaly
CT abdomen pelvis:
Urinary bladder wall thickening and adjacent fat stranding suspicious for cystitis, but recommend correlation with a urinalysis.
Cholelithiasis.
Punctate right nephrolithiasis.
Bilateral scrotal hydroceles and diffuse scrotal wall thickening.
Scrotal ultrasound:
On the left, findings suspicious for mild epididymoorchitis. In addition, Adjacent to the epididymis, slightly thickened echogenic margins are noted. The appearance suggests possibility of fibrous pseudotumor of the tunica vaginalis.
On the right, mild thickening of the epididymis without hyperemia to suggest acute epididymitis. Small to moderate right hydrocele. Mild right varicocele, with a short segment of thrombophlebitis.
Consults: Urology
Hospital course:
74-year-old male with past medical history significant for nephrolithiasis, history of gastric ulcer, fatty liver, BPH, and scrotal edema/pain for 2 years who was admitted for acute toxic metabolic encephalopathy secondary to acute urinary tract
infection. Patient was treated with IV Rocephin. Urine cultures grew out E. coli, sensitive to Augmentin. Patient was started on Augmentin prior to admission, he can continue that upon discharge.
Patient was seen in conjunction with urology. He has a left-sided fibrous pseudotumor of the tunica vaginalis. Urology recommends elevation of the scrotum, treatment with NSAIDs, and heat. He has an elevated PSA. He has a pelvic MRI appointment
on 12/16/2024. He has been instructed to keep his appointment. He needs to follow-up with urology in the office as directed.
Patient was also found to have new onset type 2 diabetes, with a hemoglobin A1c of 6.9. Patient was informed of his diagnosis, and recommended to have a carb controlled diet.
Patient was seen in conjunction with PT for his weakness. He ambulated independently in the hallways and up the stairs.
He is medically stable for discharge. He needs to follow-up with his PCP in 1 week, and urology as directed.
Disposition: Home self-care
Discharge planning: Required 50 minutes
Discharge Plan
-
Patient Disposition: Home (Routine Discharge)
Discharge Diagnosis/Procedures: Acute urinary tract infection, left-sided fibrous pseudotumor of the tunica vaginalis, scrotal pain, scrotal edema, new onset type 2 diabetes, obesity due to excess calories
Condition: Fair
Diet: Low Fat, Low Cholesterol and Diabetic, Carb Controlled
Activity: As tolerated
Driving Restrictions: As prior to admission
Activity Restrictions/Additional Instructions:
You have new onset type 2 diabetes, recommend you eat a low carbohydrate diet.
Take the Augmentin/antibiotic that you already have at home for your urinary tract infection.
Urology recommends ibuprofen, heat, scrotal elevation for your pain.
Keep your MRI appointment on Saturday.
Follow-up with your primary care doctor in 1 week, neurology as directed.
Instructions: Diabetes and diet
Referrals:
Gio Wilkins MD [Active, Urology]
Referral Note: your psa is 13 and you had a uti. Please call and follow up with your regular urologist
Yuan Vegas DO [Primary Care Provider, Internal Medicine] - in one week
Prescriptions:
New
sennosides-docusate sodium 8.6-50 mg Tablet
2 tab PO BID 120 Days Qty: 480 0RF
ibuprofen 800 mg tablet
800 mg PO TID PRN (Reason: scrotal pain) Qty: 60 0RF
Continued
amoxicillin-pot clavulanate 875-125 mg tablet
1 tab PO Q12H Qty: 20 0RF
Discharge Orders:
Discharge Patient (As Directed); Ordered 12/13/24
Ordered By: Pablo Aquino
Discharge Date and Time
Print Language: TAMAZIGHT
--- NOTE | 2024-12-13 15:30 | CM ---
Met with patient to obtain information for assessment. Patient stated that he lives with his in a two story home with five steps to enter. He described himself as independent with bathing, dressing, ADLs and all personal care. He can do
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 He has never had VN. He never had SNF. He has no DME.
Spoke with patient's , Ynes, as she had concerns about the discharge however acknowledged that as he is independent and medically stable, he is not requiring any further acute care.
will transport home.
Plan: Case management will continue to follow and assist with discharge planning. Home no needs.
[2024-12-13 15:55] VITALS: BP 132/76
--- NOTE | 2024-12-14 13:30 | CM ---
Patient called asking about VN and [facility]. Patient given information regarding residency clinic and the area agency on aging. No VN ordered per chart review. Patient and both telephone solicitor and indicated that they would call to PCP Dr. Vegas and set
up appointment and VN for follow up. CM will leave a message for prior CM at patient request. CM will continue to follow for discharge planning needs.
== END 2024-12-13 16:26 | disposition home or self-care (01) | DRG 689 ==
LOC: 3 WEST ACU 23:00
PROVIDERS: Clinical Nurse Specialist Family Health; Emergency Medicine; ADMITTING PHYSICIAN Internal Medicine; ATTENDING PHYSICIAN Family Medicine; EMERGENCY PHYSICIAN Emergency Medicine; OTHER PHYSICIAN Specialist; PRIMARYCARE PHYSICIAN Internal Medicine
DX: N30.90 Cystitis, unspecified without hematuria (principal); G92.8 Other toxic encephalopathy; R18.8 Other ascites; Z68.41 Body mass index [BMI] 40.0-44.9, adult; N45.3 Epididymo-orchitis; K59.00 Constipation, unspecified; E11.65 Type 2 diabetes mellitus with hyperglycemia; G47.33 Obstructive sleep apnea (adult) (pediatric); I87.2 Venous insufficiency (chronic) (peripheral); E66.09 Other obesity due to excess calories; K80.20 Calculus of gallbladder without cholecystitis without obstruction; N43.3 Hydrocele, unspecified; N20.0 Calculus of kidney; I80.9 Phlebitis and thrombophlebitis of unspecified site; I86.1 Scrotal varices; Z87.442 Personal history of urinary calculi; N40.0 Benign prostatic hyperplasia without lower urinary tract symptoms; Z87.11 Personal history of peptic ulcer disease; K76.0 Fatty (change of) liver, not elsewhere classified; E11.51 Type 2 diabetes mellitus with diabetic peripheral angiopathy without gangrene; E88.810 Metabolic syndrome; G89.29 Other chronic pain; K74.60 Unspecified cirrhosis of liver; R36.1 Hematospermia; W19.XXXA Unspecified fall, initial encounter; Z91.199 Patient's noncompliance with other medical treatment and regimen due to unspecified reason
CPT/HCPCS: 74176; 80053; 80061; 81003; 81015; 82962; 83036; 85025; 86803; 87086; 96361; 96374; 97162; 99284; G0103

== ENCOUNTER → 2025-02-12 14:38 | Outpatient (REF) | payer OTHER, SELFPAY | LOC: HWRAD 14:38 | PROVIDERS: ATTENDING PHYSICIAN Urology; FAMILY PHYSICIAN Internal Medicine | DX: R97.20 Elevated prostate specific antigen [PSA] (principal) | CPT/HCPCS: 76870; 93976 ==

== ENCOUNTER 2025-03-05 06:11 | Outpatient (RCR) | payer OTHER, SELFPAY | END 2025-03-05 23:59 | disposition home or self-care (01) | LOC: RPT 06:11 | PROVIDERS: ATTENDING PHYSICIAN Specialist; FAMILY PHYSICIAN Internal Medicine | DX: I89.0 Lymphedema, not elsewhere classified (principal); Z73.6 Limitation of activities due to disability | CPT/HCPCS: 97163; 97530 ==

== ENCOUNTER → 2025-03-18 12:27 | Outpatient (REF) | payer OTHER, SELFPAY | LOC: HWEVLT 12:27 | PROVIDERS: ATTENDING PHYSICIAN Radiology Diagnostic Radiology | DX: I83.893 Varicose veins of bilateral lower extremities with other complications (principal) | CPT/HCPCS: 93970 ==

== ENCOUNTER 2025-05-05 06:55 | Outpatient (RCR) | payer OTHER, SELFPAY | END 2025-05-05 23:59 | disposition home or self-care (01) | LOC: RPT 06:55 | PROVIDERS: ATTENDING PHYSICIAN Specialist; FAMILY PHYSICIAN Internal Medicine | DX: I89.0 Lymphedema, not elsewhere classified (principal); Z73.6 Limitation of activities due to disability | CPT/HCPCS: 97140; 97530 ==